=== PATIENT | male | born 1970 | race Caucasian/White ===

== ENCOUNTER 2016-11-28 11:26 | Emergency (ER) | payer MEDICAID, MEDICARE, OTHER, SELFPAY ==
[2016-11-28] MEDS ORDERED: morphine SULFATE 10 MG/ML, 1ML ONE (12:39)
[2016-11-30 10:07] LABS: ASPARTATE AMINO TRANSFERASE 51 U/L (15-37); BLOOD UREA NITROGEN 16 mg/dL (7-18); IS PT STATUS REG ER OR PRE ER? YES
== END 2016-11-28 12:26 ==
LOC: ED 11:26
DX: M25.462 Effusion, left knee (principal); M25.461 Effusion, right knee; L57.0 Actinic keratosis; M17.0 Bilateral primary osteoarthritis of knee; Z85.47 Personal history of malignant neoplasm of testis
CPT/HCPCS: 36415; 71010; 73565; 80053; 84484; 85025; 85610; 85651; 85730; 93005; 99285

== ENCOUNTER 2017-05-08 12:43 | Emergency (ER) | payer MEDICAID ==
[~2017-05-08] VITALS: Ht 188 cm; Wt 123.0 kg
[2017-05-08 12:53] VITALS: BP 160/107
[2017-05-08] MEDS ORDERED: HYDROcodone/APAP 5/325 TABLET PO ONE (13:30)
[2017-05-08] MEDS ORDERED: HYDROcodone/APAP 5/325 TABLET ONE ×2 (13:44→13:59)
== END 2017-05-08 14:52 | disposition home or self-care (01) ==
LOC: ED 14:46
DX: S20.212A Contusion of left front wall of thorax, initial encounter (principal); M94.0 Chondrocostal junction syndrome [Tietze]; W20.8XXA Other cause of strike by thrown, projected or falling object, initial encounter; Y93.89 Activity, other specified; Y92.89 Other specified places as the place of occurrence of the external cause; Y99.8 Other external cause status
CPT/HCPCS: 99284